=== PATIENT | female | born 1995 | race Hispanic/Latino ===

== ENCOUNTER 2017-03-13 13:51 | Emergency (ER) | payer MEDICAID ==
[2017-03-13 13:57] VITALS: BP 128/72; PULSE 104; RESP 20; TEMP 98.2; O2SAT 100
[2017-03-13] MEDS ORDERED: Tetanus/Diphtheria Toxoids 0.5 ml Syringe IM ONE ×2 (14:17→14:21)
--- NOTE | 2017-03-13 14:22 | C.PDOC ---
History Of Present Illness 22-year-old female, presents to the emergency department with complaints of foot pain s/p stepping on a nail on the floor, yesterday. Patient was wearing socks, and states she does not remember when she got her last tetanus. No foreign body sensations. No numbness/weakness, nausea/vomiting, or any other associated symptoms. No other complaints at this time. Time Seen by Provider: 03/13/17 14:02 Chief Complaint (Nursing): Abnormal Skin Integrity History Per: Patient History/Exam Limitations: no limitations Onset/Duration Of Symptoms: Days Current Symptoms Are (Timing): Still Present Past Medical History Reviewed: Historical Data, Nursing Documentation, Vital Signs Vital Signs: Last Vital Signs Temp 98.2 F 03/13/17 13:55 Pulse 104 H 03/13/17 13:55 Resp 20 03/13/17 13:55 BP 128/72 03/13/17 13:55 Pulse Ox 100 03/13/17 14:22 - Medical History PMH: Denies: Chronic Kidney Disease - [facility] Procedures CLOSED ENDOSCOPIC BIOPSY OF LARGE INTESTINE (06/09/14) ESOPHAGOGASTRODUODENOSCOPY [EGD] W/CLOSED BIOPSY (06/09/14) Family History: States: No Known Family Hx - Social History Hx Alcohol Use: No Hx Substance Use: No Review Of Systems Except As Marked, All Systems Reviewed And Found Negative. Constitutional: Negative for: Fever, Chills Respiratory: Negative for: Shortness of Breath Gastrointestinal: Negative for: Nausea, Vomiting Musculoskeletal: Positive for: Foot Pain Skin: Negative for: Rash Physical Exam - Physical Exam Appears: Non-toxic, No Acute Distress Skin: Warm, Dry, No Rash Neck: Normal ROM Respiratory: No Accessory Muscle Use Extremity: Normal ROM, No Deformity, No Swelling, Other (There are two puncture wounds to the plantar aspect of right foot. No erythema, discharge or gross foreign body) Neurological/Psych: Oriented x3, Normal Motor, Normal Sensation ED Course And Treatment O2 Sat by Pulse Oximetry: 100 Disposition Counseled Patient/Family Regarding: Diagnosis, Need For Followup, Rx Given - Disposition Referrals: YOUR,PMD [Other] Disposition: HOME/ ROUTINE Disposition Time: 14:21 Condition: GOOD Prescriptions: Moxifloxacin [Avelox] 400 mg PO DAILY #7 tab Instructions: Puncture Wound (ED) - Clinical Impression Clinical Impression: Puncture wound of foot - Scribe Statement The provider has reviewed the documentation as recorded by the Scribkady Brooks All medical record entries made by the Sandhyaibkady were at my direction and personally dictated by me. I have reviewed the chart and agree that the record accurately reflects my personal performance of the history, physical exam, medical decision making, and the department course for this patient. I have also personally directed, reviewed, and agree with the discharge instructions and disposition.
== END 2017-03-13 14:28 | disposition home or self-care (01) ==
LOC: C.ER 13:51
DX: S91.331A Puncture wound without foreign body, right foot, initial encounter (principal); W45.0XXA Nail entering through skin, initial encounter; Y92.9 Unspecified place or not applicable